=== PATIENT | male | born 1975 | race American Indian/Alaskan Native ===

== ENCOUNTER 2017-07-11 09:21 | Emergency (ER) | payer MEDICARE ==
[2017-07-11 10:47] LABS: Basophils % (Auto) 1.1 % (0.0-1.8); Eosinophils % (Auto) 4.7 % (0.0-4.3); Hemoglobin 16.3 gm/dl (11.8-15.2); Mean Corpuscular HGB Conc 33 % (32-34); Mean Corpuscular Hemoglobin 27 pg (28-32); Mean Corpuscular Volume 84 fl (84-94); Platelet Count 201 K/mm3 (140-440); Red Blood Count 5.99 M/mm3 (3.65-5.03); Red Cell Distribution Width 13.8 % (13.2-15.2); White Blood Count 7.3 K/mm3 (4.5-11.0)
[2017-07-11 11:07] LABS: Alanine Aminotransferase 21 units/L (7-56); Albumin 4.3 g/dL (3.9-5); Albumin/Globulin Ratio 1.2 %; Alkaline Phosphatase 68 units/L (35-129); Anion Gap 14 mmol/L; Blood Urea Nitrogen 12 mg/dL (9-20); Calcium 9.1 mg/dL (8.4-10.2); Carbon Dioxide 28 mmol/L (22-30); Chloride 100.2 mmol/L (98-107); Glucose 93 mg/dL (75-100); Lipase 19 units/L (13-60); Potassium 4.5 mmol/L (3.6-5.0); Sodium 138 mmol/L (137-145); Total Protein 7.8 g/dL (6.3-8.2)
[2017-07-11 12:18] VITALS: BP 118/77
[2017-07-11] MEDS ORDERED: NACL ONE (12:38)
--- NOTE | 2017-07-11 13:17 | Cat Scan Report ---
CT ABDOMEN AND PELVIS WITH CONTRAST INDICATION: Abdominal pain, mass. COMPARISON: 07/23/2015. FINDINGS: Abdomen and pelvis CT performed following intravenous administration of 100 cc of Omnipaque 300. LUNG BASES: Mild bibasilar hazy groundglass/dependent atelectasis. No effusions. Top normal heart size. Hiatal hernia larger at approximately 7.2 cm transverse as on axial image 32, series 4, also now containing fundal portion of the stomach and possibly paraesophageal. ABDOMEN: Liver, spleen, gallbladder, pancreas, adrenals, aorta, IVC and kidneys within normal limits. No ascites or significant adenopathy. Nonopacified GI tract evaluation limited, though grossly nonobstructive. Normal appendix. Few descending colon diverticuli. PELVIS: Urinary bladder, seminal vesicles, prostate and rectosigmoid within normal limits. No free fluid or significant adenopathy. Unremarkable bones. CONCLUSION: Hiatal hernia now larger with mild diverticulosis again noted without acute CT abnormality, as described. Please correlate. Thank you for the opportunity to participate in this patient's care.
[2017-07-11 13:44] LABS: Bilirubin,Urine NEG (Negative); Blood,Urine NEG (Negative); Ketones,Urine NEG (Negative); Leukocyte Esterase,Urine NEG (Negative); Mucus,Urine FEW /HPF; Nitrite,Urine NEG (Negative); Protein,Urine <15 mg/dL mg/dL (Negative); Urobilinogen,Urine < 2.0 mg/dL (<2.0)
--- NOTE | 2017-07-11 13:49 | Emergency Department Report ---
HPI - General Chief Complaint: Abdominal Pain Time Seen by Provider: 07/11/17 11:53 - HPI HPI: This is a 41-year-old male presents to the emergency department with complaint of a painful lump just above his belly button has been going on for the past 2 years but recently got more painful. He says that it "feels different" than usual. This all occurred after the patient was working out on an elliptical last week. He has no discomfort when he is sitting or laying flat but it occurs when he is standing or exerting himself. He denies any nausea, vomiting, fever. He has not taken anything for his symptoms prior to presentation. He has a PCP, Dr. Quiñones, but has not seen them regarding his symptoms. No recent travel or sick contacts at home. ED Past Medical Hx - Past Medical History Previous Medical History?: Yes Hx Psychiatric Treatment: Yes (SCHIZOAFFECTIVE, anxiety, panic attacks) Additional medical history: fibromyalgia. Degenerative disc disorder. "BONE SPURS" - Surgical History Past Surgical History?: Yes Additional Surgical History: left hand - Social History Smoking Status: Never Smoker Substance Use Type: Alcohol - Medications Home Medications: Home Medications Medication Instructions Recorded Confirmed Last Taken Type ARIPiprazole [Abilify TAB] 5 mg PO QPM 10/01/15 10/01/15 09/30/15 History Acetamin/Codeine 120-12Mg/5 ml 10 ml PO TID PRN #60 ml 10/01/15 Unknown Rx [Tylenol/Codeine] Azithromycin [Zithromax Z-EDDIE] 250 mg PO DAILY #6 tab 10/01/15 Unknown Rx Guaifenesin/Pseudoephedrne HCl 1 each PO Q12HR #14 tab.er.12h 10/01/15 Unknown Rx [Mucinex D ER 600-60 mg Tablet] ED Review of Systems ROS: Stated complaint: LUMP BY NAVEL Other details as noted in HPI Comment: All other systems reviewed and negative Constitutional: denies: chills, fever Eyes: denies: eye pain, eye discharge, vision change ENT: denies: ear pain, throat pain Respiratory: denies: cough, shortness of breath, wheezing Cardiovascular: denies: chest pain, palpitations Gastrointestinal: abdominal pain. denies: nausea, vomiting Genitourinary: denies: urgency, dysuria Musculoskeletal: denies: back pain, joint swelling, arthralgia Skin: denies: rash, lesions Neurological: denies: headache, weakness, paresthesias Physical Exam - Physical Exam Vital Signs: Vital Signs 07/11/17 07/11/17 07/11/17 10:05 11:56 12:00 Temperature 98.5 F 98.4 F Pulse Rate 58 L 58 L 54 L Respiratory 16 18 17 Rate Blood Pressure 126/79 118/77 O2 Sat by Pulse 99 96 Oximetry 07/11/17 12:16 Temperature Pulse Rate 58 L Respiratory 20 Rate Blood Pressure 118/77 O2 Sat by Pulse 98 Oximetry Physical Exam: GENERAL: The patient is well-developed well-nourished. HENT: Normocephalic. Atraumatic. Patient has moist mucous membranes. EYES: Extraocular motions are intact. Pupils equal reactive to light bilaterally. NECK: Supple. Trachea is midline. CHEST/LUNGS: Clear to auscultation. There is no respiratory distress noted. HEART/CARDIOVASCULAR: Regular. There is no tachycardia. There is no gallop rub or murmur. ABDOMEN: Abdomen is soft, nontender to palpation when patient is laying flat. When the patient is standing there is a small area just above the umbilicus that has a fullness and is slightly tender to palpation. No guarding rebound tenderness. Patient has normal bowel sounds. There is no abdominal distention. SKIN: Skin is warm and dry. NEURO: The patient is awake, alert, and oriented. The patient is cooperative. The patient has no focal neurologic deficits. The patient has normal speech and gait. MUSCULOSKELETAL: There is no tenderness or deformity. There is no limitation range of motion. There is no evidence of acute injury. ED Course Vital Signs 07/11/17 07/11/17 07/11/17 10:05 11:56 12:00 Temperature 98.5 F 98.4 F Pulse Rate 58 L 58 L 54 L Respiratory 16 18 17 Rate Blood Pressure 126/79 118/77 O2 Sat by Pulse 99 96 Oximetry 07/11/17 12:16 Temperature Pulse Rate 58 L Respiratory 20 Rate Blood Pressure 118/77 O2 Sat by Pulse 98 Oximetry ED Medical Decision Making - Lab Data Result diagrams: 07/11/17 10:32 07/11/17 10:32 - Radiology Data Radiology results: report reviewed CT ABDOMEN AND PELVIS WITH CONTRAST INDICATION: Abdominal pain, mass. COMPARISON: 07/23/2015. FINDINGS: Abdomen and pelvis CT performed following intravenous administration of 100 cc of Omnipaque 300. LUNG BASES: Mild bibasilar hazy groundglass/dependent atelectasis. No effusions. Top normal heart size. Hiatal hernia larger at approximately 7.2 cm transverse as on axial image 32, series 4, also now containing fundal portion of the stomach and possibly paraesophageal. ABDOMEN: Liver, spleen, gallbladder, pancreas, adrenals, aorta, IVC and kidneys within normal limits. No ascites or significant adenopathy. Nonopacified GI tract evaluation limited, though grossly nonobstructive. Normal appendix. Few descending colon diverticuli. PELVIS: Urinary bladder, seminal vesicles, prostate and rectosigmoid within normal limits. No free fluid or significant adenopathy. Unremarkable bones. CONCLUSION: Hiatal hernia now larger with mild diverticulosis again noted without acute CT abnormality, as described. - Medical Decision Making 41-year-old male presents with acute on chronic "lump" above his navel but has recently become more tender. He has a soft nontoxic abdomen. I was able to feel some type of a fullness or nodule when he is standing upright with concern for a ventral hernia. Labs are unremarkable. CT scan of the abdomen and pelvis was done that shows a hiatal hernia. Patient does not appear in any acute distress and does not require immediate surgical intervention or admission at this time. He has good follow-up with primary care and will be given a referral for gastroenterology and general surgery. He will return to the ER with any worsening of symptoms or any acute distress. - Differential Diagnosis ventral hernia, hiatal hernia, colitis, malignancy Critical Care Time: No Critical care attestation.: If time is entered above; I have spent that time in minutes in the direct care of this critically ill patient, excluding procedure time. ED Disposition Clinical Impression: Hiatal hernia Abdominal pain Qualifiers: Abdominal location: unspecified location Qualified Code(s): R10.9 - Unspecified abdominal pain Disposition: - TO HOME OR SELFCARE Is pt being admited?: No Condition: Stable Instructions: Hiatal Hernia (ED) Additional Instructions: Please follow-up with your primary care physician in the next few days. I have given you a referral for a local recruiter account manager, Dr. Maldonado, as well as a local general surgeon, Dr. Pang, to follow up regarding your hiatal hernia. Return to the emergency Department with any worsening of her symptoms or any acute distress. Referrals: ARMANDO QUIÑONES MD [Primary Care Provider] - 3-5 Days SHAY MALDONADO MD [Staff Physician] - 3-5 Days WAYLON PANG DO [Staff Physician] - 3-5 Days Time of Disposition: 13:51
[2017-07-11 13:54] LABS: WBC,Urine < 2.0 /HPF (0.0-6.0)
== END 2017-07-11 14:14 | disposition home or self-care (01) ==
LOC: ED 09:21
DX: K44.9 Diaphragmatic hernia without obstruction or gangrene (principal); R10.9 Unspecified abdominal pain; F20.9 Schizophrenia, unspecified; F41.9 Anxiety disorder, unspecified; Z88.8 Allergy status to other drugs, medicaments and biological substances
CPT/HCPCS: 36415; 74177; 80053; 81001; 83690; 85025; 99284; Q9967